=== PATIENT | female | born 1985 | race Caucasian/White ===

== ENCOUNTER 2020-03-07 00:37 | Inpatient (IN) | payer BC ==
[~2020-03-07] VITALS: Ht 162.6 cm; Wt 62.7 kg
[2020-03-07] MEDS ORDERED: OXYTOCIN 30U/ 0.9% NaCL 500ML 500 ML IV ONE (03:32)
[2020-03-07] MEDS ORDERED: OXYTOCIN 30U/ 0.9% NaCL 500ML 500 ML IV PRN (03:32)
[2020-03-07] MEDS ORDERED: LIDOCAINE 1%, 20ML ONE ×2 (03:46→15:36)
[2020-03-07] MEDS ORDERED: MISOPROSTOL 200 MCG TABLET ONE (03:46)
[2020-03-07] MEDS ORDERED: OXYTOCIN 30U/ 0.9% NaCL 500ML 500 ML ONE ×2 (03:46→22:59)
[2020-03-07] MEDS ORDERED: NEWBORN KIT ONE (03:47)
[2020-03-07] MEDS ORDERED: TERBUTALINE 1 MG/ML, 1ML IVPush PRN (04:00)
[2020-03-07] MEDS ORDERED: CALCIUM CARBONATE 500 MG TAB.CHEW PO PRN ×2 (04:00→23:00)
[2020-03-07] MEDS ORDERED: ONDANSETRON 2MG/ML, 2ML IVPush PRN (04:00)
[2020-03-07] MEDS ORDERED: METOCLOPRAMIDE 5 MG/ML, 2ML IVPush PRN (04:00)
[2020-03-07] MEDS ORDERED: FENTANYL PF 100 MCG/2ML IV PRN (04:00)
[2020-03-07] MEDS ORDERED: FENTANYL PF 100 MCG/2ML IVPush PRN (04:00)
[2020-03-07] MEDS ORDERED: SODIUM CITRATE/CITRIC ACID 30 ML UDC PO PRN (04:00)
[2020-03-07] MEDS ORDERED: TERBUTALINE 1 MG/ML, 1ML SQ PRN (04:00)
[2020-03-07] MEDS ORDERED: CEFAZOLIN PMX 1GM/50ML 50 ML IVPB SCH (04:00)
[2020-03-07] MEDS: LACTATED RINGERS 1,000 ML IV SCH ×3 (04:01→23:01)
[2020-03-07 04:11] LABS: BASOPHILS # (AUTO) 0.03 x10^3/uL (0-0.1); BASOPHILS % (AUTO) 0 % (0-1); EOSINOPHILS # (AUTO) 0.13 x10^3/uL (0-0.4); EOSINOPHILS % (AUTO) 2 % (1-7); LYMPHOCYTES # (AUTO) 1.75 x10^3/uL (1-3.4); LYMPHOCYTES % (AUTO) 22 % (22-44); MD NO; MEAN CORPUSCULAR HEMOGLOBIN 31.3 pg (27.0-34.8); MEAN CORPUSCULAR HGB CONC 33.5 g/dL (32.4-35.8); MEAN CORPUSCULAR VOLUME 93.3 fL (80-100); MONOCYTES # (AUTO) 0.53 x10^3/uL (0.2-0.8); MONOCYTES % (AUTO) 7 % (2-9); NEUTROPHILS % (AUTO) 69 % (42-75); PLATELET COUNT 183 x10^3/uL (130-400); RED BLOOD COUNT 4.29 x10^6/uL (3.82-5.3); RED CELL DISTRIBUTION WIDTH 13.4 % (9.6-15.2)
[2020-03-07] MEDS ORDERED: D5%-LACTATED RINGERS 1,000 ML IV SCH (04:35)
[2020-03-07] MEDS ORDERED: ONDANSETRON 2MG/ML, 2ML ONE (14:10)
[2020-03-07] MEDS ORDERED: FENTANYL PF 100 MCG/2ML ONE (15:12)
[2020-03-07] MEDS ORDERED: FENTANYL/BUPIV./NS/PF 250 ML EPIDCONT SCH ×2 (15:19→15:33)
[2020-03-07] MEDS ORDERED: FENTANYL/BUPIV./NS/PF 250 ML EPIDCONT ONE ×2 (15:27→15:36)
[2020-03-07] MEDS ORDERED: LACTATED RINGERS 1,000 ML IVBOLUS PRN ×2 (15:30→16:00)
[2020-03-07] MEDS ORDERED: LACTATED RINGERS 1,000 ML IV SCH (15:33)
[2020-03-07] MEDS ORDERED: LIDOCAINE/PF 1.5%-EPI 1:200K, 30ML ONE (15:36)
[2020-03-07] MEDS ORDERED: NALOXONE 0.4 MG/ML, 1ML IVPush PRN (16:00)
[2020-03-07] MEDS ORDERED: EPHEDRINE 50 MG/ML, 1ML IVPush PRN (16:00)
[2020-03-07] MEDS: OXYTOCIN 30U/ 0.9% NaCL 500ML 500 ML IV SCH ×2 (22:42)
[2020-03-07] MEDS ORDERED: IBUPROFEN 600 MG TABLET ONE (22:59)
[2020-03-07] MEDS ORDERED: SIMETHICONE 80 MG CHEW TAB PO PRN (23:00)
[2020-03-07] MEDS ORDERED: MISOPROSTOL 200 MCG TABLET PR PRN (23:00)
[2020-03-07] MEDS ORDERED: HYDROcodone/APAP 5/325 TABLET PO PRN (23:00)
[2020-03-07] MEDS ORDERED: BISACODYL 10 MG SUPP PR PRN (23:00)
[2020-03-07] MEDS ORDERED: DOCUSATE 100 MG CAPSULE PO PRN (23:00)
[2020-03-07] MEDS ORDERED: ACETAMINOPHEN 325 MG TABLET PO PRN ×2 (23:00)
[2020-03-07] MEDS ORDERED: ONDANSETRON 2MG/ML, 2ML IV PRN (23:00)
[2020-03-07] MEDS: IBUPROFEN 600 MG TABLET PO PRN (23:01)
[2020-03-08] MEDS: OXYTOCIN 30U/ 0.9% NaCL 500ML 500 ML IV SCH ×7 (00:08→18:42)
[2020-03-08] MEDS ORDERED: DEXTROSE 47%, 15GM GEL ONE (00:16)
[2020-03-08 01:30] VITALS: BP 111/72
[2020-03-08] MEDS: HYDROcodone/APAP 5/325 TABLET PO PRN ×5 (03:21→21:09)
[2020-03-08] MEDS: LACTATED RINGERS 1,000 ML IV SCH (04:35)
[2020-03-08 05:30] VITALS: BP 94/58
[2020-03-08 06:33] LABS: BASOPHILS # (AUTO) 0.02 x10^3/uL (0-0.1); BASOPHILS % (AUTO) 0 % (0-1); EOSINOPHILS # (AUTO) 0.02 x10^3/uL (0-0.4); EOSINOPHILS % (AUTO) 0 % (1-7); LYMPHOCYTES # (AUTO) 1.28 x10^3/uL (1-3.4); LYMPHOCYTES % (AUTO) 12 % (22-44); MD NO; MEAN CORPUSCULAR HEMOGLOBIN 31.3 pg (27.0-34.8); MEAN CORPUSCULAR HGB CONC 33.5 g/dL (32.4-35.8); MEAN CORPUSCULAR VOLUME 93.7 fL (80-100); MEAN PLATELET VOLUME 8.4 fL (7.4-10.4); MONOCYTES # (AUTO) 0.82 x10^3/uL (0.2-0.8); MONOCYTES % (AUTO) 8 % (2-9); NEUTROPHILS # (AUTO) 8.44 x10^3/uL (1.8-6.8); NEUTROPHILS % (AUTO) 80 % (42-75); PLATELET COUNT 118 x10^3/uL (130-400); RED BLOOD COUNT 2.94 x10^6/uL (3.82-5.3); RED CELL DISTRIBUTION WIDTH 13.8 % (9.6-15.2)
[2020-03-08] MEDS: PRENATAL VIT/IRON/FA 1 EACH TABLET PO SCH (08:17)
[2020-03-08] MEDS: IBUPROFEN 600 MG TABLET PO PRN ×2 (08:18→17:17)
[2020-03-08 08:58] VITALS: BP 93/57
[2020-03-08 12:00] VITALS: BP 128/68
[2020-03-08 20:00] VITALS: BP 101/65
[2020-03-09] MEDS: HYDROcodone/APAP 5/325 TABLET PO PRN ×5 (01:10→17:57)
[2020-03-09] MEDS: IBUPROFEN 600 MG TABLET PO PRN ×3 (01:10→17:57)
[2020-03-09] MEDS: OXYTOCIN 30U/ 0.9% NaCL 500ML 500 ML IV SCH (04:42)
[2020-03-09] MEDS: PRENATAL VIT/IRON/FA 1 EACH TABLET PO SCH (07:48)
[2020-03-09 08:20] VITALS: BP 93/65
[2020-03-09] MEDS ORDERED: IBUP-1222 PO (18:19)
[2020-03-09] MEDS ORDERED: HYDR-3240 PO (18:20)
[2020-03-09] MEDS ORDERED: DOCU-131 PO (18:20)
[2020-03-09] MEDS ORDERED: PREN1TAB60 PO (18:20)
== END 2020-03-09 20:35 | disposition home or self-care (01) | DRG 805 ==
LOC: LDOP 00:37 → LDIP 03:33 → 2NW 03-08 00:45
PROVIDERS: ADMIT Obstetrics & Gynecology Maternal & Fetal Medicine; ATTEND Obstetrics & Gynecology Maternal & Fetal Medicine
PROC: 10E0XZZ Delivery of Products of Conception, External Approach (ICD-10-PCS; principal; 2020-03-07)
PROC: 0KQM0ZZ Repair Perineum Muscle, Open Approach (ICD-10-PCS; 2020-03-07)
PROC: 3E0R3BZ Introduction of Anesthetic Agent into Spinal Canal, Percutaneous Approach (ICD-10-PCS; 2020-03-07)
PROC: 00HU33Z Insertion of Infusion Device into Spinal Canal, Percutaneous Approach (ICD-10-PCS; 2020-03-07)
DX: O76 Abnormality in fetal heart rate and rhythm complicating labor and delivery (principal); O45.93 Premature separation of placenta, unspecified, third trimester; Z37.0 Single live birth; D62 Acute posthemorrhagic anemia; O35.8XX0 Maternal care for other (suspected) fetal abnormality and damage, not applicable or unspecified; O69.81X0 Labor and delivery complicated by cord around neck, without compression, not applicable or unspecified; O42.013 Preterm premature rupture of membranes, onset of labor within 24 hours of rupture, third trimester; J45.909 Unspecified asthma, uncomplicated; O99.02 Anemia complicating childbirth; O99.52 Diseases of the respiratory system complicating childbirth; O99.344 Other mental disorders complicating childbirth; F32.9 Major depressive disorder, single episode, unspecified; O70.1 Second degree perineal laceration during delivery; Z3A.36 36 weeks gestation of pregnancy; Z82.49 Family history of ischemic heart disease and other diseases of the circulatory system; Z88.0 Allergy status to penicillin; Z88.1 Allergy status to other antibiotic agents
CPT/HCPCS: 36415; J3490; J7121; 82803; 84112; 85025; 86592; 86850; 86900; G0378; J0690; J2405; J3010; J2590; J7120